=== PATIENT | male | born 1960 | race Caucasian/White ===

== ENCOUNTER 2018-12-10 09:33 | Day surgery (SDC) | payer OTHER ==
[2018-12-10] VITALS (11 sets, daily range): BP systolic 134–164; BP diastolic 85–99
[~2018-12-10] VITALS: Ht 182.9 cm; Wt 117.0 kg
[~2018-12-10 09:33] MED LIST: ceFAZolin 1gm IVPB IVPB ONE; celeBREX 200mg Cap **SURGERY PATIENTS ONLY ORAL ONE; oxyCONTIN 20mg tab ORAL ONE
[2018-12-10] MEDS ORDERED: PERCOCET 10-321 EACH ORAL (11:08)
[2018-12-10] MEDS ORDERED: PEPCID AC20 M2 PO (11:08)
[2018-12-10] MEDS ORDERED: BENADRYL25 M3 PO (11:08)
[2018-12-10] MEDS ORDERED: celeBREX 200mg Cap **SURGERY PATIENTS ONLY ORAL ONE (11:49)
[2018-12-10] MEDS ORDERED: oxyCONTIN 20mg tab ORAL ONE (11:49)
[2018-12-10] MEDS ORDERED: fentaNYL 100 mcg/2 mL IV ONE (12:27)
[2018-12-10] MEDS ORDERED: Midazolam 2mg/2ml Inj ONE (12:28)
[2018-12-10] MEDS ORDERED: Propofol 200mg/20ml IV ONE (12:30)
[2018-12-10] MEDS ORDERED: Lidocaine 1% MPF 10mg/ml 5ml ONE (12:30)
[2018-12-10] MEDS ORDERED: EPINEPHrine 1mg/1ml Amp ONE (12:58)
[2018-12-10] MEDS ORDERED: Kenalog-40 1ml Vial ONE (12:58)
[2018-12-10] MEDS ORDERED: Ketorolac 30mg Inj ONE (12:58)
[2018-12-10] MEDS ORDERED: Bupivacaine 0.25% Inj 30ml INJ ONE (12:59)
[2018-12-10] MEDS ORDERED: NS Irrig 4000ml IRRIG ONE (13:30)
[2018-12-10] MEDS ORDERED: LR 1000ml ONE (13:30)
--- NOTE | 2018-12-10 14:09 | Pre-Procedure Note/Attestation ---
Pre-Procedure Note/Attestation Complete Prior to Procedure Planned Procedure: right Procedure Narrative: diagnostic arthroscopy, sad Indications for Procedure Pre-Operative Diagnosis: right shoulder internal impingement Attestation I attest that I discussed the nature of the procedure; its benefits; risks and complications; and alternatives (and the risks and benefits of such alternatives ), prior to the procedure, with the patient (or the patient's legal billing customer service representative). I attest that, if there was a reasonable possibility of needing a blood transfusion, the patient (or the patient's legal billing customer service representative) was given the [facility] standardized written summary, pursuant to the Sreed[place] Blood Safety Act ([place] Health and Safety Code # 1645, as amended). I attest that I re-evaluated the patient just prior to the surgery and that there has been no change in the patient's H&P, except as documented below: Haider Izaguirre MD Dec 10, 2018 14:09
--- NOTE | 2018-12-10 14:10 | Operative Note - PDOC ---
Operative Note Operative Note Pre-op Diagnosis: right shoulder internal impingement Procedure: see op report Post-op Diagnosis: same as pre-op plus Operative Findings: consistent w/pre-op dx studies Anesthesia: MAC Specimen: none Complications: none Condition: stable Estimated Blood Loss: none Implant(s) used?: No Haider Izaguirre MD Dec 10, 2018 14:10
[2018-12-10] MEDS ORDERED: Norco 5mg/325mg tab ORAL PRN (14:15)
[2018-12-10] MEDS ORDERED: HYDROmorphone 1mg/ml Carpuject SUBQ PRN (14:15)
[2018-12-10] MEDS ORDERED: Tylenol #3 tab (300mg/30mg) ORAL PRN (14:15)
[2018-12-10] MEDS ORDERED: D5 1/2NS 1,000 ML IV SCH (14:15)
[2018-12-10] MEDS ORDERED: LR 1000ml 1,000 ML IVLG SCH (14:16)
--- NOTE | 2018-12-10 14:16 | Anethesia Preoperative Eval ---
Anesthesia Pre-op PMH/ROS General Date of Evaluation: Dec 10, 2018 Time of Evaluation: 13:05 Anesthesiologist: Deana ASA Score: ASA 2 Mallampati Score Class I : Soft palate, uvula, fauces, pillars visible Class II: Soft palate, uvula, fauces visible Class III: Soft palate, base of uvula visible Class IV: Only hard plate visible Mallampati Classification: Class II Surgeon: Dmitriy Diagnosis: R shoulder pain Surgical Procedure: R shoulder scope Anesthesia History: none Family History: no anesthesia problems Allergies: Coded Allergies: No Known Allergies (Unverified , 12/10/18) Medications: see eMAR Patient NPO?: Yes Past Medical History Cardiovascular: Denies: HTN, CAD, [place], valve dz, arrhythmia, other Pulmonary: Reports: AJITH; Denies: asthma, COPD, other Gastrointestinal/Genitourinary: Reports: GERD; Denies: CRI, ESRD, other Neurologic/Psychiatric: Reports: depression/anxiety, other - chronic pain; Denies: dementia, CVA, TIA Endocrine: Reports: DM - borderline; Denies: hypothyroidism, steroids, other HEENT: Denies: cataract (L), cataract (R), glaucoma, HYDABURG (L), HYDABURG (R), other Hematology/Immune: Denies: anemia, DVT, bleeding disorder, other Musculoskeletal/Integumentary: Denies: OA, RA, DJD, DDD, edema, other Other: obesity PMH Narrative: as above PSxH Narrative: none Anesthesia Pre-op Phys. Exam Physician Exam Last Vital Signs Date Time Temp Pulse Resp B/P (MAP) Pulse Ox O2 Delivery O2 Flow Rate FiO2 12/10/18 11:29 98.3 61 18 134/85 98 Room Air Constitutional: NAD Neurologic: CN 2-12 intact Cardiovascular: RRR, no M/R/G Respiratory: CTA Gastrointestinal: S/NT/ND Airway Exam Mallampati Score: Class III MO: limited Neck: short ROM: limited Teeth: intact Dentures: no upper, no lower Anesthesia Pre-op A/P Labs see chart Studies Pre-op Studies: EKG - SR Risk Assessment & Plan Assessment: ASA 2 Plan: GA with LMA R brachial plexus block Status Change Before Surgery: No Pre-Antibiotics Drug: Ancef 2gr. Given Within 1 Hr of Incision: Yes Time Given: 13:10 Mejia Leblanc MD Dec 10, 2018 14:16
[2018-12-10] MEDS ORDERED: Morphine Sulfate 10mg/ml Inj ONE (14:22)
[2018-12-10] MEDS ORDERED: Sodium Chloride 10ml vial INJ ONE (14:22)
[2018-12-10] MEDS ORDERED: DiphenhydrAMINE 50mg/ml Inj IVP PRN (14:30)
[2018-12-10] MEDS ORDERED: Meperidine 50mg/ml Inj(FOR RIGORS ONLY) IV PRN (14:30)
[2018-12-10] MEDS ORDERED: Ketorolac 30mg Inj IV PRN (14:30)
[2018-12-10] MEDS ORDERED: Midazolam 2mg/2ml Inj IVP PRN (14:30)
--- NOTE | 2018-12-10 15:04 | Immediate Post-Op Evaluation ---
Immediate Post-Op Evalulation Immediate Post-Op Evalulation Procedure: R shoulder arthroscopy subacromion decompression Date of Evaluation: Dec 10, 2018 Time of Evaluation: 15:03 IV Fluids: 1000 Blood Products: none Estimated Blood Loss: min Urinary Output: none Blood Pressure Systolic: 136 Blood Pressure Diastolic: 78 Pulse Rate: 78 Respiratory Rate: 20 O2 Sat by Pulse Oximetry: 99 Temperature (Fahrenheit): 97.6 Pain Score (1-10): 1 Nausea: No Vomiting: No Complications none Patient Status: reacts, patent, none Hydration Status: adequate Mejia Leblanc MD Dec 10, 2018 15:04
[2018-12-10] MEDS: Hydromorphone 0.5mg/0.5ml inj IVP PRN ×2 (15:24→16:33)
--- NOTE | 2018-12-10 16:44 | 48 Hour Post Anesthesia Eval ---
Post Anesthesia Evaluation Procedure: R shoulder arthroscopy subacromion decompression Date of Evaluation: Dec 10, 2018 Time of Evaluation: 16:42 Blood Pressure Systolic: 148 0: 56 Pulse Rate: 72 Respiratory Rate: 20 Temperature (Fahrenheit): 97.5 O2 Sat by Pulse Oximetry: 98 Airway: patent Nausea: No Vomiting: No Pain Intensity: 3 Hydration Status: adequate Cardiopulmonary Status: stable Mental Status/LOC: patient returned to baseline Follow-up Care/Observations: n/a Post-Anesthesia Complications: none Follow-up care needed: ready to discharge Mejia Leblanc MD Dec 10, 2018 16:44
--- NOTE | 2018-12-10 19:15 | Operative Note - Dictated ---
DATE OF OPERATION: 12/10/2018 PREOPERATIVE DIAGNOSIS: Right shoulder traumatic impingement syndrome. POSTOPERATIVE DIAGNOSIS: Right shoulder traumatic impingement syndrome. PROCEDURES: 1. Right shoulder diagnostic arthroscopy. 2. Right shoulder subacromial decompression bursectomy release of CA ligament. SURGEON: Haider Izaguirre M.D. ANESTHESIA: Interscalene with general. INDICATION FOR PROCEDURE: The patient is a pleasant gentleman, who has continued right shoulder pain, difficulty with activities, and nighttime pain. He failed conservative treatment and elected to undergo right shoulder diagnostic arthroscopy bursectomy. Risks, limitations, expectations, and complications of procedure were discussed in detail. All questions addressed. DESCRIPTION OF PROCEDURE: After informed consent was obtained, the patient was placed under monitored anesthesia control. Right shoulder was prepped and draped in a sterile manner. Time-out was performed. Ancef was administered. A posterolateral stab incision was then made. Trocar was introduced into the glenohumeral joint. Of note, there is no significant chondral damage. The anterior labrum appeared to be intact labrum. The biceps tendon was intact along with the subscapularis supraspinatus footprint along the greater tuberosity was intact. At this point, the camera was placed in the subacromial space. There was hypertrophic bursal tissue. The undersurface of the acromion was identified. Acromioplasty was started from lateral to medial and completed posterior to anterior. Once that was done, the bursectomy was completed. The bursal side of the rotator cuff was evaluated and noted to be intact. At that point, the instruments were removed. Portal sites were closed with 3-0 Monocryl sutures. Steri-Strips and sterile dressing were applied. The patient was awoken and taken to recovery room with stable vital signs. ESTIMATED BLOOD LOSS: None. COMPLICATIONS: None. SPECIMENS: None. IMPLANTS: None. Haider Izaguirre M.D. DR: DAIN JOB#: [id number] CC: LEXIS
== END 2018-12-10 17:55 | disposition home or self-care (01) ==
LOC: SUR 09:33
DX: M75.41 Impingement syndrome of right shoulder (principal); E66.9 Obesity, unspecified; G47.33 Obstructive sleep apnea (adult) (pediatric); K21.9 Gastro-esophageal reflux disease without esophagitis; F32.9 Major depressive disorder, single episode, unspecified; F41.9 Anxiety disorder, unspecified; G89.29 Other chronic pain; R73.03 Prediabetes
CPT/HCPCS: 29822; J0171; J0690; J1170; J1885; J2175; J2250; J2270; J2704; J3010; J3301; J3490; 94003; 94150

== ENCOUNTER 2019-03-11 09:15 | Inpatient (IN) | payer OTHER ==
[~2019-03-11] VITALS: Ht 182.9 cm; Wt 117.9 kg
[~2019-03-11 09:15] MED LIST changes: +BENADRYL25 M3 PO; +PEPCID AC20 M2 PO; +PERCOCET 10-321 EACH ORAL
[2019-03-18] MEDS ORDERED: oxyCONTIN 20mg tab ORAL ONE (06:00)
[2019-03-18] MEDS ORDERED: celeBREX 200mg Cap **SURGERY PATIENTS ONLY ORAL ONE (06:00)
[2019-03-18] MEDS ORDERED: ceFAZolin 1gm IVPB IVPB ONE ×2 (06:00)
[2019-04-15] MEDS ORDERED: celeBREX 200mg Cap **SURGERY PATIENTS ONLY ORAL ONE (06:00)
[2019-04-15] MEDS ORDERED: oxyCONTIN 20mg tab ORAL ONE (06:00)
[2019-04-15] MEDS ORDERED: ceFAZolin 1gm IVPB IVPB ONE ×2 (06:00)
[2019-07-15] MEDS ORDERED: celeBREX 200mg Cap **SURGERY PATIENTS ONLY ORAL ONE (06:00)
[2019-07-15] MEDS ORDERED: oxyCONTIN 20mg tab ORAL ONE (06:00)
[2019-07-15] MEDS ORDERED: ceFAZolin 1gm IVPB IVPB ONE ×2 (06:00)
[2019-08-12] MEDS ORDERED: celeBREX 200mg Cap **SURGERY PATIENTS ONLY ORAL ONE (06:00)
[2019-08-12] MEDS ORDERED: oxyCONTIN 20mg tab ORAL ONE (06:00)
[2019-08-12] MEDS ORDERED: ceFAZolin 1gm IVPB IVPB ONE ×2 (06:00)
[2019-11-11] VITALS (7 sets, daily range): BP systolic 120–138; BP diastolic 66–79
[2019-11-11] MEDS ORDERED: ceFAZolin 1gm IVPB IVPB ONE ×2 (06:00)
[2019-11-11] MEDS ORDERED: oxyCONTIN 20mg tab ORAL ONE ×2 (06:00→13:32)
[2019-11-11] MEDS ORDERED: celeBREX 200mg Cap **SURGERY PATIENTS ONLY ORAL ONE ×2 (06:00→13:32)
--- NOTE | 2019-11-11 13:40 | NUR ---
PREOP MEDS CELEBREX 400MG AND OXYCONTIN 20MG PO GIVEN AT 1340.
[2019-11-11] MEDS ORDERED: Bacitracin 50000 Units Vial ONE (15:29)
[2019-11-11] MEDS ORDERED: NeoSporin Gu Irrig 1ml Amp IRRIG ONE (15:29)
[2019-11-11] MEDS ORDERED: LR 1000ml 1,000 ML IVLG SCH (15:52)
[2019-11-11] MEDS ORDERED: fentaNYL 100 mcg/2 mL IV PRN (16:00)
[2019-11-11] MEDS ORDERED: DiphenhydrAMINE 50mg/ml Inj IVP PRN (16:00)
[2019-11-11] MEDS ORDERED: HYDROcodone/Acetamin 5/325 tab ORAL PRN (16:00)
[2019-11-11] MEDS ORDERED: Labetalol 5mg/ml 20ml vial IV PRN (16:00)
[2019-11-11] MEDS ORDERED: HYDROcodone/Acetamin 7.5/325 tab ORAL PRN (16:00)
[2019-11-11] MEDS ORDERED: Meperidine 50mg/ml Inj(FOR RIGORS ONLY) IVP PRN (16:00)
[2019-11-11] MEDS ORDERED: oxyCODONE HCL/Acetaminophen 5/325mg ORAL PRN (16:00)
[2019-11-11] MEDS ORDERED: Metoclopramide 10mg/2ml Inj IVP PRN (16:00)
[2019-11-11] MEDS ORDERED: Ketorolac 30mg Inj IV PRN ×2 (16:00)
[2019-11-11] MEDS ORDERED: LORazepam Inj 2mg/ml 1ml IV PRN (16:00)
[2019-11-11] MEDS ORDERED: Hydromorphone 0.5mg/0.5ml inj IVP PRN (16:00)
[2019-11-11] MEDS ORDERED: Atropine Sulfate 0.4mg/ml inj IVP PRN (16:00)
[2019-11-11] MEDS ORDERED: Midazolam 2mg/2ml Inj IVP PRN (16:00)
--- NOTE | 2019-11-11 16:02 | Anethesia Preoperative Eval ---
Anesthesia Pre-op PMH/ROS General Date of Evaluation: Nov 11, 2019 Time of Evaluation: 19:24 Anesthesiologist: Melanie ASA Score: ASA 3 Mallampati Score Class I : Soft palate, uvula, fauces, pillars visible Class II: Soft palate, uvula, fauces visible Class III: Soft palate, base of uvula visible Class IV: Only hard plate visible Mallampati Classification: Class II Surgeon: Dmitriy Diagnosis: R Knee Pain Surgical Procedure: R Knee Total Arthroplasty Anesthesia History: none Family History: no anesthesia problems Allergies: Coded Allergies: No Known Allergies (Unverified , 12/10/18) Medications: see eMAR Patient NPO?: Yes NPO Date: Nov 11, 2019 NPO Time: 0100 Past Medical History Cardiovascular: Reports: HTN Other: obesity PSxH Narrative: Shoulder SX Anesthesia Pre-op Phys. Exam Physician Exam Last Vital Signs Date Time Temp Pulse Resp B/P (MAP) Pulse Ox O2 Delivery O2 Flow Rate FiO2 11/11/19 12:42 Room Air 11/11/19 12:38 98.1 58 20 128/75 (92) 96 Constitutional: NAD Neurologic: CN 2-12 intact Cardiovascular: RRR Respiratory: CTA Gastrointestinal: S/NT/ND Airway Exam Mallampati Score: Class II MO: full ROM: limited Teeth: missing, intact Anesthesia Pre-op A/P Risk Assessment & Plan Assessment: ASA 3 Plan: GA, SED, Spinal, Adductor Block Status Change Before Surgery: No Pre-Antibiotics Dru grams Ancef IV Given Within 1 Hr of Incision: Yes Time Given: 19:46 eFlix Navarro MD Nov 11, 2019 16:02
[2019-11-11] MEDS ORDERED: Ropivacaine 5mg/ml Vial 30ml INJ ONE (16:11)
[2019-11-11] MEDS ORDERED: Dexamethasone 4mg/ml vial ONE (16:11)
[2019-11-11] MEDS ORDERED: Lidocaine 1% MPF 10mg/ml 5ml ONE (16:11)
[2019-11-11] MEDS ORDERED: Sodium Chloride 10ml vial INJ ONE (16:11)
[2019-11-11] MEDS ORDERED: EPINEPHrine 1mg/1ml Amp ONE (16:11)
[2019-11-11] MEDS ORDERED: HYDROmorphone 1mg/ml Carpuject SUBQ PRN (17:00)
[2019-11-11] MEDS ORDERED: Milk of Magnesia 30ml Ud ORAL PRN (17:00)
--- NOTE | 2019-11-11 17:00 | Pre-Procedure Note/Attestation ---
Pre-Procedure Note/Attestation Complete Prior to Procedure Planned Procedure: right Procedure Narrative: tka Indications for Procedure Pre-Operative Diagnosis: right knee arthritis Attestation I attest that I discussed the nature of the procedure; its benefits; risks and complications; and alternatives (and the risks and benefits of such alternatives ), prior to the procedure, with the patient (or the patient's legal uniforms sales representative). I attest that, if there was a reasonable possibility of needing a blood transfusion, the patient (or the patient's legal uniforms sales representative) was given the [facility] standardized written summary, pursuant to the Sreedhar [place] Blood Safety Act ([place] Health and Safety Code # 1645, as amended). I attest that I re-evaluated the patient just prior to the surgery and that there has been no change in the patient's H&P, except as documented below: Haider Izaguirre MD Nov 11, 2019 17:00
--- NOTE | 2019-11-11 17:01 | Operative Note - PDOC ---
Operative Note Operative Note Pre-op Diagnosis: right knee arthritis Procedure: see op report Post-op Diagnosis: same as pre-op plus Operative Findings: consistent w/pre-op dx studies Anesthesia: regional Specimen: none Complications: none Condition: stable Estimated Blood Loss: none Implant(s) used?: Yes Haider Izaguirre MD Nov 11, 2019 17:01
[2019-11-11] MEDS ORDERED: Aspirin Baby 81mg ORAL SCH (18:00)
[2019-11-11] MEDS ORDERED: Docusate 100mg cap ORAL SCH (18:00)
[2019-11-11] MEDS ORDERED: Acetaminophen 500mg (ES) tab ORAL SCH (18:00)
[2019-11-11] MEDS ORDERED: Hydromorphone 0.5mg/0.5ml inj IVP SCH (18:45)
[2019-11-11] MEDS ORDERED: Kenalog-40 1ml Vial ONE (19:28)
[2019-11-11] MEDS ORDERED: Ketorolac 30mg Inj ONE (19:28)
[2019-11-11] MEDS ORDERED: Duramorph PF 5mg/10ml amp ONE (19:29)
[2019-11-11] MEDS ORDERED: NS Irrig 2000ml IRRIG ONE (19:30)
[2019-11-11] MEDS: D5 1/2NS w/KCl 20mEq 1,000 ML IV SCH (19:30)
[2019-11-11] MEDS ORDERED: NS Irrig 1000ml ONE (19:30)
[2019-11-11] MEDS ORDERED: LR 1000ml ONE (19:30)
[2019-11-11] MEDS ORDERED: Sterile Water Irrig 1000ml IRRIG ONE (19:30)
[2019-11-11] MEDS: Aspirin Baby 81mg ORAL SCH (20:00)
[2019-11-11] MEDS: Acetaminophen 500mg (ES) tab ORAL SCH (20:00)
[2019-11-11] MEDS: Docusate 100mg cap ORAL SCH (20:00)
[2019-11-11] MEDS ORDERED: Tranexamic Acid 100 ML IVPB ONE (20:15)
--- NOTE | 2019-11-11 20:31 | Immediate Post-Op Evaluation ---
Immediate Post-Op Evalulation Immediate Post-Op Evalulation Procedure: R Knee Toal Arthroplasty Date of Evaluation: Nov 11, 2019 Time of Evaluation: 10:12 IV Fluids: 1000 LR Blood Products: 0 Estimated Blood Loss: 50 Urinary Output: 100 Blood Pressure Systolic: 129 Blood Pressure Diastolic: 65 Pulse Rate: 74 Respiratory Rate: 16 O2 Sat by Pulse Oximetry: 100 Temperature (Fahrenheit): 100.8 Pain Score (1-10): 1 Nausea: No Vomiting: No Complications 0 Patient Status: awake, reacts, patent, none Hydration Status: adequate Dru Grams Ancef IV Given Within 1 Hr of Incision: Yes Time Given: 19:46 Felix Navarro MD Nov 11, 2019 20:31
--- NOTE | 2019-11-11 20:32 | 48 Hour Post Anesthesia Eval ---
Post Anesthesia Evaluation Procedure: R Knee Toal Arthroplasty Date of Evaluation: Nov 11, 2019 Time of Evaluation: 00:34 Blood Pressure Systolic: 131 0: 67 Pulse Rate: 72 Respiratory Rate: 18 Temperature (Fahrenheit): 98.6 O2 Sat by Pulse Oximetry: 97 Airway: patent Nausea: No Vomiting: No Pain Intensity: 1 Hydration Status: adequate Cardiopulmonary Status: Stable Mental Status/LOC: patient returned to baseline Follow-up Care/Observations: 0 Post-Anesthesia Complications: 0 Follow-up care needed: N/A Felix Navarro MD Nov 11, 2019 20:32
[2019-11-11] MEDS: oxyCONTIN 20mg tab ORAL SCH (21:00)
--- NOTE | 2019-11-11 22:50 | NUR ---
NURSE NOTES: Pt received from surgery, a/o X4, able to make needs known, call light within reach, no c/o pain at the moment, family at bedside, pt right leg wrapped with christiano wrap, dressing is dermabond, gauze 4X4, telpa and christiano wrap without immobilizer, pt has sensation on upper thigh at the moment, X ray to be taken, Primary will be Dr. Rashi Coronado, will continue to monitor. Addendum: 11/12/19 at 0238 by CHRISTIANNE ALLEN RN vitals 98.3 151/78 hr 69, with nasal cannuli
--- NOTE | 2019-11-11 23:47 | Diagnostic Imaging Report ---
EXAM: XR Right Knee, 3 Views CLINICAL HISTORY: POST-OP TECHNIQUE: Three views of the right knee. COMPARISON: No relevant prior studies available. FINDINGS: Bones/joints: No acute fracture. No dislocation. Arthroplasty hardware is intact. Soft tissues: Air and effusion in the joint. Soft tissue edema. IMPRESSION: No acute osseous abnormalities. Postsurgical changes.
--- NOTE | 2019-11-12 00:30 | NUR ---
NURSE NOTES: 97.7 t 123/71, 67hr, 94%O2, X ray taken. will continue to monitor.
--- NOTE | 2019-11-12 01:45 | NUR ---
NURSE NOTES: Pt with sensation to the right leg, able to feel and wiggle toes, raised rt leg off the bed, received pain medication will continue to monitor.
[2019-11-12] MEDS: oxyCODONE 5mg IR tab ORAL PRN ×3 (02:13→07:56)
--- NOTE | 2019-11-12 03:30 | Operative Note - Dictated ---
DATE OF OPERATION: 11/11/2019 PREOPERATIVE DIAGNOSIS: Right knee traumatic patellofemoral arthrosis. POSTOPERATIVE DIAGNOSIS: Right knee traumatic patellofemoral arthrosis. PROCEDURES: Right total knee arthroplasty. SURGEON: Haider Izaguirre M.D. ANESTHESIA: Spinal with femoral adductor block. INDICATION FOR PROCEDURE: The patient is a pleasant 59-year-old gentleman who has significant trauma directly to his right knee. He had symptomatic patellofemoral arthrosis, and given his age and activity level, he was indicated to go with total knee arthroplasty. Alternatives were discussed with him including non-operative and operative options. Risks, limitations, expectations, and complications of the procedure were discussed in detail including infection, neurovascular damage, stiffness, need for future surgery, risk of anesthesia, medical complications, DVT, PE, and mortality risks. All questions were addressed. DESCRIPTION OF PROCEDURE: After informed consent was obtained, the patient was brought to the operating room. The patient was placed under spinal anesthesia. Balbuena catheter was placed. Ancef was administered. Right leg was prepped and draped in a sterile manner. Time-out was performed. A standard medial parapatellar arthrotomy was performed. Distal femur was well visualized. A distal femoral cutting block was then placed. A posterior to anterior sizing guide was then selected, size 5 seen is appropriate. Therefore, a size 5 distal femoral cutting block was placed and the anterior and posterior chamfer cuts were then made. Once that was done, medial and lateral meniscus removed. Proximal tibial resection guide was then placed. The proximal tibia was then resected. The knee was reduced with a 5 femur, 5 tibial insert, with a 9 mm insert came out to good extension, good stability, full extension, 10 degrees of flexion, 90 degrees flexion. Good tracking of the patella. At this point, the patella tray was appropriately externally rotated and keel punch was prepared. The patella was everted, measured 22 mm. Freehand resection was performed. A 35 mm patellar component was selected 24 mm. It was felt that additional 2 mm was acceptable given the thickness of the patella and the patient's size. At this point, cement was prepared. Implants were impacted into place. Excess cement was removed. The arthrotomy site was closed with #1 Vicryl suture, 2-0 Vicryl suture, and 3-0 Monocryl sutures. Compression dressing was applied. The patient had a femoral adductor block. The patient was subsequently transferred to recovery with stable vital signs. EBL: None. COMPLICATIONS: None. SPECIMENS: None. IMPLANTS: Size 5 femur, size 5 tibial tray, 9 mm tibial insert with a 35 mm patellar component. Haider Izaguirre M.D. DR: ELKE JOB#: [id number] CC:
--- NOTE | 2019-11-12 03:30 | NUR ---
NURSE NOTES: Received report from RY Espino. Pt is awake and lying high evans's; comfortably resting. No signs of acute distress noted. Pt denies any pain at this time. AOx4; able to make needs known. Checked IV site, line, and rate; patent and running. Bed at lowest position. Brakes on. Siderails up x2. Call light within reach. Will continue to monitor.
--- NOTE | 2019-11-12 03:41 | NUR ---
HAND-OFF: Report given to RY Phillips. pt stable, receivd pain medication, rt leg wrapped, pt with sensation and moving his rt leg.
[2019-11-12] MEDS: ceFAZolin sod 2 GM in D5W 110 ML IV SCH ×2 (05:23→12:17)
[2019-11-12 08:00] VITALS: BP 127/71
--- NOTE | 2019-11-12 08:03 | NUR ---
HAND-OFF: Report given to RY Sena. Pt is awake and in stable condition. Plan of care endorsed.
--- NOTE | 2019-11-12 08:05 | NUR ---
NURSE NOTES: Patient lying in bed awake. Complain of pain 7/10 on right knee and will administer pain medication as ordered. Skin intact and dry. Surgical dressing intact and dry. IV dressing intact and dry. IV fluid on going as ordered. Balbuena catheter patent and draining well. Bed lowest position. Call light within reach. Will continue to monitor.
[2019-11-12] MEDS: D5 1/2NS w/KCl 20mEq 1,000 ML IV SCH (08:50)
[2019-11-12] MEDS: Acetaminophen 500mg (ES) tab ORAL SCH ×2 (09:00→13:00)
[2019-11-12] MEDS: Docusate 100mg cap ORAL SCH ×3 (09:52→18:09)
[2019-11-12] MEDS: Aspirin Baby 81mg ORAL SCH ×2 (09:53→18:09)
[2019-11-12] MEDS: celeBREX 200mg Cap **SURGERY PATIENTS ONLY ORAL SCH (09:53)
[2019-11-12] MEDS: oxyCONTIN 20mg tab ORAL SCH ×2 (09:54→20:47)
[2019-11-12] MEDS ORDERED: oxyCODONE 5mg IR tab ORAL PRN (11:30)
--- NOTE | 2019-11-12 11:30 | NUR ---
NURSE NOTES: Spoke to regarding Oxycodone order and new order received. Order read back and carried out. Per : Patient doesn't need knee immobilizer.
[2019-11-12 12:00] VITALS: BP 123/70
[2019-11-12] MEDS ORDERED: HYDROmorphone 1mg/ml Carpuject IVP SCH (15:30)
--- NOTE | 2019-11-12 15:34 | NUR ---
NURSE NOTES: Spoke to regarding pain medications and new order received. Order read back and carried out.
[2019-11-12 16:00] VITALS: BP 121/70
--- NOTE | 2019-11-12 16:00 | NUR ---
NURSE NOTES: Removed Balbuena catheter as ordered and removed 200 ml yellow urine. No complain of discomfort. Patient tolerated procedure well. Will continue to monitor.
--- NOTE | 2019-11-12 16:11 | NUR ---
NURSE NOTES: Spoke to to verify pain medication order and new order received. Order read back and carried out.
--- NOTE | 2019-11-12 17:03 | NUR ---
PT Note PT ronit completed, treatment initiated. Patient has tightness in his right heel cords and hamstrings affecting his right knee and ankle ROM and gait pattern. Pt needs PT to increase his muscle strength to improve his safety in mobility and gait to enable him to return to [facility]. Addendum: 11/12/19 at 1704 by ELEAZAR FRAGA PT Amended: Links added.
--- NOTE | 2019-11-12 19:30 | NUR ---
NURSE NOTES: Patient said Percocet is not working well and wants to go back to old pain medication regimen. Spoke to regarding pain medication and new order received. Order read back and carried out. Notified patient regarding pain medication and verbalized understanding.
--- NOTE | 2019-11-12 19:30 | NUR ---
NURSE NOTES: Pt received in room with family at bedside, able to make needs known, pt walking in room to the restroom, zavala has been removed, will continue to monitor.
--- NOTE | 2019-11-12 19:45 | NUR ---
HAND-OFF: Report given to Kenzie RAZA. Patient in stable condition. Patient had bowel movement and voided yellow urine. No signs of bleeding. No complain of discomfort. Will continue to monitor.
[2019-11-12 20:00] VITALS: BP 133/69
[2019-11-12] MEDS: HYDROmorphone 1mg/ml Carpuject SUBQ PRN (23:41)
[2019-11-13] VITALS: BP 126/78
[2019-11-13 04:00] VITALS: BP 117/74
[2019-11-13] MEDS: HYDROmorphone 1mg/ml Carpuject SUBQ PRN ×3 (05:50→22:28)
--- NOTE | 2019-11-13 07:44 | NUR ---
HAND-OFF: Report given to Irais Arana RN.
--- NOTE | 2019-11-13 07:45 | NUR ---
NURSE NOTES: Received report from RY Espino. Rounding done with outgoing nurse. Pt a/o x 4, in bed. Rt knee surgical site dressing is C/D/I. c/o pain and pain medicine will be given as MD ordered. Lt AC IV access is patent. Bed in lowest position, call light within reach. Will continue to monitor.
[2019-11-13 08:00] VITALS: BP 115/72
--- NOTE | 2019-11-13 09:30 | NUR ---
PT Note Was notified by RN to see patient at 12 pm per patient's request. Will comply.
[2019-11-13] MEDS: oxyCONTIN 20mg tab ORAL SCH ×3 (09:41→22:55)
[2019-11-13] MEDS: Docusate 100mg cap ORAL SCH ×3 (09:41→17:28)
[2019-11-13] MEDS: Aspirin Baby 81mg ORAL SCH ×2 (09:41→17:28)
[2019-11-13] MEDS: celeBREX 200mg Cap **SURGERY PATIENTS ONLY ORAL SCH (09:41)
[2019-11-13] MEDS ORDERED: NORCO 10-325 T1 EACH ORAL (11:08)
[2019-11-13] MEDS ORDERED: NAPROXEN250 MG ORAL (11:09)
[2019-11-13] MEDS ORDERED: NEURONTIN100 MG ORAL (11:10)
[2019-11-13] MEDS ORDERED: ASPIRIN325 MG ORAL (11:11)
[2019-11-13] MEDS: D5 1/2NS w/KCl 20mEq 1,000 ML IV SCH (11:30)
--- NOTE | 2019-11-13 11:45 | NUR ---
PT Note Was notified by RN that patient does not want to be seen fro PT at 12pm; wants to be seen at 1330 instead.
[2019-11-13 12:00] VITALS: BP 119/67
--- NOTE | 2019-11-13 14:20 | NUR ---
NURSE NOTES: Dressing was soaking after pt went to the bathroom. Notified Dr. Izaguirre and ordered change the dressing. Will carry out.
--- NOTE | 2019-11-13 14:30 | NUR ---
NURSE NOTES: Dressing on right knee surgical site was changed by RN. Dressing is C/D/I.
--- NOTE | 2019-11-13 15:40 | NUR ---
NURSE NOTES: Patient wants to stay at the hospital one more day. Notified to Dr. Izaguirre.
[2019-11-13 16:00] VITALS: BP 130/74
--- NOTE | 2019-11-13 19:36 | NUR ---
HAND-OFF: Report given to RY Jiang.
--- NOTE | 2019-11-13 19:38 | NUR ---
NURSE NOTES: Received report from RY Hays. Rounding is done with outgoing nurse. Patient is in bed, awake, and a/o x 4. Rt knee surgical site dressing is C/D/I. patient c/o pain 6/10 and will be given medication as ordered. Lt AC IV is intact and patent. Bed is on alarm, locked, and lowest position. Call light is within reach. Will continue to monitor.
[2019-11-13 20:00] VITALS: BP 135/78
[2019-11-14] VITALS (7 sets, daily range): BP systolic 111–163; BP diastolic 61–92
[2019-11-14] MEDS: D5 1/2NS w/KCl 20mEq 1,000 ML IV SCH ×2 (00:50→16:32)
[2019-11-14] MEDS: HYDROmorphone 1mg/ml Carpuject SUBQ PRN ×3 (04:59→18:32)
--- NOTE | 2019-11-14 07:32 | NUR ---
HAND-OFF: Report given to lindsey RAZA. Patient in stable condition.
--- NOTE | 2019-11-14 08:30 | NUR ---
NURSE NOTES: Pt lying in bed w/bed in lowest position and call light within reach. Pt A&Ox4, VSS, and in no apparent distress. IV site intact/asymptomatic & H/L & surgical dressing C/D/I. Pt waiting to ambulate w/PT to see if he will be D/C'd home today. Will continue to monitor.
[2019-11-14] MEDS: oxyCONTIN 20mg tab ORAL SCH ×2 (09:36→20:51)
[2019-11-14] MEDS: Aspirin Baby 81mg ORAL SCH ×2 (09:37→17:16)
[2019-11-14] MEDS: celeBREX 200mg Cap **SURGERY PATIENTS ONLY ORAL SCH (09:37)
[2019-11-14] MEDS: Docusate 100mg cap ORAL SCH ×3 (09:38→17:16)
--- NOTE | 2019-11-14 13:45 | NUR ---
CASE MANAGEMENT: INITIAL REVIEW 59YR OLD MALE HERE FOR ELECTIVE SURGERY SI:KNEE PAIN 98.1 58 20 128/75 96% ON RA IS: RIGHT KNEE TOTAL ARTHROPLASTY IN SURGERY NOW \: 3E MED SURG UNIT CASE MANAGEMENT: REVIEW 11/12/2019 SI:POD# 1 RIGHT KNEE TOTAL ARTHROPLASTY 97.7 79 20 127/71 93% ON RA IS: IVF D5@75ML/HR FEOSOL PO TID PROTONIX PO QD ASA PO QD OXYCONTIN OP BID \: 3E MED SURG UNIT CASE MANAGEMENT: REVIEW 11/13/2019 SI:POD#2 RIGHT KNEE TOTAL ARTHROPLASTY 97.9 72 18 119/67 96% ON RA IS: IVF D5@75ML/HR FEOSOL PO TID PROTONIX PO QD ASA PO QD OXYCONTIN OP BID \: 3E MED SURG UNIT
--- NOTE | 2019-11-14 19:19 | NUR ---
HAND-OFF: Report given to RY Jiang.
--- NOTE | 2019-11-14 19:21 | NUR ---
NURSE NOTES: Received report from RY Hudson. Rounding is done with outgoing nurse. Patient is in bed, awake, and a/o x 4. Rt knee surgical site dressing is C/D/I and No bleeding noted at this time. patient c/o pain 6/10 and will be given medication as ordered. Lt AC IV is intact and patent. Bed is on alarm, locked, and lowest position. Call light is within reach. Will continue to monitor.
[2019-11-15] VITALS: BP 123/74
[2019-11-15] MEDS: HYDROmorphone 1mg/ml Carpuject SUBQ PRN ×2 (01:22→08:50)
[2019-11-15 04:00] VITALS: BP 128/70
--- NOTE | 2019-11-15 07:23 | NUR ---
HAND-OFF: Report given to Madeline RAZA. Patient in stable condition.
[2019-11-15] MEDS: celeBREX 200mg Cap **SURGERY PATIENTS ONLY ORAL SCH (07:54)
[2019-11-15] MEDS: Aspirin Baby 81mg ORAL SCH (07:54)
[2019-11-15] MEDS: Docusate 100mg cap ORAL SCH ×2 (07:55→11:43)
[2019-11-15] MEDS: oxyCONTIN 20mg tab ORAL SCH (07:55)
[2019-11-15 08:00] VITALS: BP 119/68
--- NOTE | 2019-11-15 10:51 | NUR ---
NURSE NOTES: Pt comfortable provided with pain mediation , currently he is sleeping.
--- NOTE | 2019-11-15 11:05 | NUR ---
NURSE NOTES: Pt seen by physical therapy. Per physical therapy, pt can go home with recommendation of physical therapy for knee strength
[2019-11-15 12:00] VITALS: BP 139/75
--- NOTE | 2019-11-15 17:12 | NUR ---
CASE MANAGEMENT:REVIEW SI;S/P RT KNEE ARTHROPLASTY 98.6 64 20 139/75 95% ON RA IS;OXYCODONE PO Q12 HRS DILAUDID SUBQ Q6 HRS PRN BREAKTHROUGH PERCOCET PO PRN MILD TO MODERATE CELEBREX O QD GABAPENTIN PO TID ASA [P QD MED LANCE STATUS DCP;HOME
--- NOTE | 2019-11-15 18:02 | NUR ---
NURSE NOTES: Pt discharged home. Provided with discharge packet. Refused pain medication stated " I do not want anything I just want to go home you made me wait 5 minutes it was due 5 minutes ago, why were you not in here to just give it to me?" Pt informed of previous conversation of time medication was given, routine versus as needed medication. ' I want to just go home. At that time pt requested christiano bandage to be reinforced, " But if it is going to hurt I do not want it done" Area assessed bandage in back of clear dressing was soiled with blood with dark edges appearing to be old . Dressing changed incision closed intact, no swelling or discharge noted. Area assessed by bottle house cleaners supervisor. Information about side effects of medication provided. As well as s/s of infection. Verbalized understanding. IV removed . Paper prescription given, along with elevated toilet seat and walker.
--- NOTE | 2019-11-15 18:12 | NUR ---
NURSE NOTES: v/s stable pt is aware to follow up with the Dr for bleeding swelling or increase pain.
--- NOTE | 2019-11-17 10:49 | Discharge Summary ---
Discharge Summary Hospital Course Date of Admission Nov 11, 2019 at 11:35 Date of Discharge Nov 15, 2019 at 17:30 Admitting Diagnosis Right knee osteoarthritis Reason for Hospitalization: elective surgery HPI Edward Drake Jr is a 59 year old male who was admitted on Nov 11, 2019 at 11: 35 for Right Knee Osteoarthritis. Patient was admitted for elective surgery Procedures s/p 11/11/[address] Izaguirre Right total knee arthroplasty Hospital Course status post surgery course of recovery uneventful initially IV fluids s/p perioperative antibiotics neurovascular status closely monitored, remained stable incision with dressing clean dry and intact pain management was addressed ; pain controlled remained hemodynamically stable ambulated with PT fall precautions maintained; safe for ambulation DVT prophylaxis provided use of incentive spirometry was encouraged while in the bed tolerated diet , IV fluids discontinued GI prophylaxis provided antiemetics were on board as needed voided freely bowel regimen instituted patient was stable for discharge discharge instructions provided follow up with surgeon inthe office as instructed FINAL DIAGNOSES Right knee traumatic patellofemoral arthrosis S/P right total knee arthroplasty Discharge Medications Continued Medications: Aspirin* (Aspirin*) 325 Mg Tablet 325 MG ORAL DAILY for BLOOD THINNER for 42 Days, #42 TAB (This prescription has been renewed) Gabapentin* (Neurontin*) 100 Mg Capsule 100 MG ORAL THREE TIMES A DAY for PAIN, #90 CAP 0 Refills (This prescription has been renewed) Hydrocodone Bit/Acetaminophen 10-325* ([place] 10-325*) 1 Each Tablet 1 TAB ORAL Q6H PRN for For Pain, #30 TAB 0 Refills (This prescription has been renewed) PRN PAIN Naproxen* (Naprosyn*) 250 Mg Tablet 500 MG ORAL TWICE A DAY for NSAID, #60 TAB 0 Refills (This prescription has been renewed) Discontinued Medications: Diphenhydramine HCl (Benadryl) 25 Mg Capsule 25 MG PO NEEDED, CAP Oxycodone Hcl/Acetaminophen 10-325 Mg Tablet (Percocet 10-325 Mg Tablet*) 1 Each Tablet 1 TAB ORAL Q4H PRN for For Pain, TAB Discharge Condition Upon Discharge: stable Discharge Disposition Patient was discharged to Discharge Instructions Discharge Instructions Special Instructions I have been assigned to complete a D/C Summary on this account. I was not involved in the patient management Sana Gaitan NP Nov 17, 2019 10:49
== END 2019-11-15 17:30 | disposition home or self-care (01) | DRG 470 ==
LOC: EDSTATUS 04-15 14:45 → SDSOVERFLO 11-11 11:35 → 3E 11-11 18:30
PROC: 0SRC0J9 Replacement of Right Knee Joint with Synthetic Substitute, Cemented, Open Approach (ICD-10-PCS; principal; 2019-11-11 13:30)
DX: M17.31 Unilateral post-traumatic osteoarthritis, right knee (principal); I10 Essential (primary) hypertension; E66.9 Obesity, unspecified
CPT/HCPCS: 36415; 86850; 86900; 86901; 87081; 94003; 94150